=== PATIENT | male | born 1970 | race Caucasian/White ===

== ENCOUNTER 2021-03-07 12:23 | Emergency (ER) | payer MEDICAID, SELFPAY ==
[~2021-03-07] VITALS: Ht 167.6 cm; Wt 96.3 kg
[~2021-03-07 12:23] MED LIST: LACT10SO11 PO; LIB25 PO; MULT-405 PO; THIA-34 PO
[2021-03-07 12:29] VITALS: BP 137/68
--- NOTE | 2021-03-07 12:51 | NUR ---
PATIENT AMBULATED TO BED 7.
--- NOTE | 2021-03-07 12:57 | NUR ---
50 Y/O MALE, C/O RIGHT WRIST/HAND PAIN FOR 2 MONTHS, STATED HAD INJURED HIS HAND 2 MONTHS AGO, STILL FEELING PAIN. STATED PAIN 7/10, TO THE RIGHT WRIST AND HAND WITH MOVEMENT, NO SWELLING NOTED TO THE SITE. RX: VITAMIN AND FOLIC ACID. DENIES ANY HISTORY
--- NOTE | 2021-03-07 13:01 | NUR ---
DR CONWAY AT BEDSIDE EXAMINING PATIENT
[2021-03-07] MEDS ORDERED: KETOROLAC 30 MG/ML VIAL IM ONE (13:05)
--- NOTE | 2021-03-07 13:12 | NUR ---
upholstery technician at pt bedside.
[2021-03-07] MEDS ORDERED: IBUP-2213 PO (13:50)
[2021-03-07] MEDS ORDERED: CEPH-588 PO (13:50)
[2021-03-07 14:12] VITALS: BP 137/68
--- NOTE | 2021-03-07 14:13 | NUR ---
Patient discharged with v/s stable. Written and verbal after care instructions given and explained. Patient alert, oriented and verbalized understanding of instructions. Ambulatory with steady gait. All questions addressed prior to discharge. ID band removed. Patient advised to follow up with PMD. Rx of keflex 500 mg po qid [id number] and ibuprofen 600 mg po qid prn pain and fever given. Patient educated on indication of medication including possible reaction and side effects. Opportunity to ask questions provided and answered.
== END 2021-03-07 14:13 | disposition home or self-care (01) ==
LOC: MED 12:23
DX: L03.113 Cellulitis of right upper limb (principal); Z79.899 Other long term (current) drug therapy
CPT/HCPCS: 73130; 96372; 99283; J1885